=== PATIENT | male | born 1990 | race Caucasian/White ===

== ENCOUNTER 2020-07-28 02:12 | Emergency (ER) | payer OTHER, SELFPAY ==
[2020-07-28 02:23] VITALS: BP 120/80; PULSE 105; RESP 16; TEMP 36.8; O2SAT 98; BMI 25.7
--- NOTE | 2020-07-28 02:41 | XRR_ITS ---
PROCEDURE INFORMATION: Exam: XR Lumbosacral Spine Exam date and time: 07/28/2020 2:41 AM Age: 30 years old Clinical indication: Low back pain TECHNIQUE: Imaging protocol: XR of the lumbosacral spine. Views: 2 or 3 views. COMPARISON: No relevant prior studies available. FINDINGS: Bones/joints: Normal. No acute fracture. Normal alignment. Soft tissues: Unremarkable. XR/XR lumbar spine 2-3V* [id number] IMPRESSION: No acute findings.
[2020-07-28] MEDS: HYDROcodone-acetaminophen 7.5-325 mg Tablet 1 TAB PO (02:45)
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
[2020-07-28 03:47] VITALS: PULSE 76; RESP 16; O2SAT 99
== END 2020-07-28 03:48 | disposition home or self-care (01) ==
PROVIDERS: Emergency Provider Emergency Medicine; PCP Family Medicine
DX: S39.012A Strain of muscle, fascia and tendon of lower back, initial encounter (principal); X50.9XXA Other and unspecified overexertion or strenuous movements or postures, initial encounter
CPT/HCPCS: 72100; 99283

== ENCOUNTER 2020-08-21 06:36 | Outpatient (CLI) | payer SELFPAY ==
--- NOTE | 2020-08-21 07:15 | MR_ITS ---
WS: [id number] MRI RIGHT SHOULDER HISTORY: S46.911A - Strain of unspecified muscle, fascia and tendon strain. COMPARISON: None available. TECHNIQUE: Multiplanar sequences of the shoulder joint are submitted. Very minimal hypertrophic changes at the AC joint. Very small osteophyte encroaching upon the anterio r supraspinatus tendon. There is a small amount of increased signal along the AC ligament but no disp lacement. Very small amount of fluid in the subdeltoid bursa. Biceps tendon is in normal position. No os acromion. No rotator cuff tears. No muscle atrophy or edema. There is a very small amount of increased T2 signa l at the rotator cuff interval and increase fluid surrounding the humeral head. There is a very small amount of increased T2 signal in the posterior humeral head but no fracture identified. Soft tissue injury with edema noted in the posterior shoulder between the infraspinatus muscle and the teres oj r and just deep to the deltoid muscle. Increased signal extends through the posterior labrum consistent with tear. MR/MR shoulder RT wo con* [id number] IMPRESSION: 1. Soft tissue injury with edema is moderate deep to the deltoid muscle and be tween the infraspinatus muscle and the teres minor. 2. No rotator cuff tear. 3. Small amount of marrow edema in the posterior humeral head with no fracture . 4. Mild AC ligament sprain. 5. Posterior labral tear.
--- NOTE | 2020-08-21 08:00 | MR_ITS ---
WS: [id number] MRI LUMBAR SPINE NONCONTRAST HISTORY: S39.012A - Strain of muscle, fascia and tendon of low back. COMPARISON: Lumbar spine radiographs 07/28/2020 TECHNIQUE: Sagittal and axial multisequence imaging is submitted. Very mild straightening of the normal lumbar lordosis. No marrow edema or fracture. Very mild disc desiccation at L4-5 and L5-S1. Conus terminates normally at L1-2 disc level. L1-L2: Normal. L2-L3: Normal. L3-L4: Mild narrowing of the thecal sac may be congenital. Mild encroachment upon the subarticular re cesses and a small amount of fluid in the facet joints. Mild ligamentum flavum hypertrophy. L4-L5: Mild annular disc bulging with a moderate size central disc protrusion contacting and deformin g the ventral thecal sac. There is contact upon the L5 nerve roots bilaterally in the lateral recesse s and mild narrowing of the subarticular recesses and foramen. Slightly greater narrowing on the RIGH T. Associated annular fissure with the disc. L5-S1: Mild annular disc bulge with a central disc protrusion and fissure. Disc does contact and defo rm the ventral thecal sac but the nerve roots do not appear to be significantly affected or displaced . Mild bilateral subarticular and foraminal stenosis. Small amount of fluid in the facet joints. Visualized retroperitoneum is negative. MR/MR lumbar spine wo con* [id number] IMPRESSION: 1. Moderate central disc protrusion at L4-5 with disc contacting the L5 nerve roots bilaterally in the lateral recesses with narrowing of the subarticular re cesses and foramina. No severe stenosis. 2. Central disc protrusion at L5-S1 without contact on the nerve roots. Mild b ilateral subarticular recess and foraminal stenosis. 3. No acute fracture.
== END 2020-08-21 06:37 | disposition home or self-care (01) ==
LOC: RADSHAW 06:39
PROVIDERS: PCP Family Medicine; Visit Provider Nurse Practitioner Family
DX: S39.012A Strain of muscle, fascia and tendon of lower back, initial encounter (principal); S46.911A Strain of unspecified muscle, fascia and tendon at shoulder and upper arm level, right arm, initial encounter; X58.XXXA Exposure to other specified factors, initial encounter; M51.27 Other intervertebral disc displacement, lumbosacral region; M51.26 Other intervertebral disc displacement, lumbar region; S43.51XA Sprain of right acromioclavicular joint, initial encounter; R60.0 Localized edema
CPT/HCPCS: 72148; 73221

== ENCOUNTER 2020-09-20 13:26 | Outpatient (RCR) | payer SELFPAY | END 2020-10-15 23:59 | disposition home or self-care (01) | LOC: SPT 13:26 | PROVIDERS: PCP Family Medicine; Visit Provider Orthopaedic Surgery | DX: S46.911D Strain of unspecified muscle, fascia and tendon at shoulder and upper arm level, right arm, subsequent encounter (principal); X58.XXXD Exposure to other specified factors, subsequent encounter | CPT/HCPCS: 97110; 97162 ==

== ENCOUNTER 2020-10-04 06:00 | Outpatient (RCR) | payer SELFPAY | END 2020-10-15 23:59 | disposition home or self-care (01) | LOC: SPT 06:00 | PROVIDERS: PCP Family Medicine; Referring Provider Specialist; Visit Provider Specialist | DX: M54.5 Low back pain (principal); M51.16 Intervertebral disc disorders with radiculopathy, lumbar region | CPT/HCPCS: 97032; 97110; 97161 ==

== ENCOUNTER 2020-10-16 06:00 | Outpatient (RCR) | payer SELFPAY | END 2020-11-14 23:59 | disposition home or self-care (01) | LOC: SPT 06:00 | PROVIDERS: PCP Family Medicine; Referring Provider Specialist; Visit Provider Specialist | DX: M54.5 Low back pain (principal); M51.16 Intervertebral disc disorders with radiculopathy, lumbar region | CPT/HCPCS: 97110 ==

== ENCOUNTER 2020-10-16 06:00 | Outpatient (RCR) | payer SELFPAY | END 2020-11-14 23:59 | disposition home or self-care (01) | LOC: SPT 06:00 | PROVIDERS: PCP Family Medicine; Visit Provider Orthopaedic Surgery | DX: M54.5 Low back pain (principal); M51.17 Intervertebral disc disorders with radiculopathy, lumbosacral region | CPT/HCPCS: 97110 ==

== ENCOUNTER 2021-08-17 14:01 | Emergency (ER) | payer SELFPAY ==
[2021-08-17 14:21] VITALS: BP 161/91; PULSE 79; RESP 16; TEMP 36.7; O2SAT 98; BMI 28.3
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
--- NOTE | 2021-08-17 14:51 | CTR_ITS ---
PROCEDURE INFORMATION: Exam: CT Lumbar Spine Without Contrast Exam date and time: 08/17/2021 3:11 PM Age: 31 years old Clinical indication: Low back pain TECHNIQUE: Imaging protocol: Computed tomography of the lumbar spine without contrast. Radiation optimization: All CT scans at this facility use at least one of these dose optimization techniques: automated exposure control; mA and/or kV adjustment per patient size (includes targeted exams where dose is matched to clinical indication); or iterative reconstruction. COMPARISON: MR lumbar spine wo con* [id number] 08/21/2020 7:51 AM RADIATION DOSE METRICS: Total DLP (mGy-cm): 2197.14 FINDINGS: Bones/joints: No acute fracture. Normal alignment. L1-L2: No significant disc protrusion. No severe spinal canal stenosis. No significant neural foraminal narrowing. L2-L3: No significant disc protrusion. No severe spinal canal stenosis. No significant neural foraminal narrowing. L3-L4: No significant disc protrusion. No severe spinal canal stenosis. No significant neural foraminal narrowing. L4-L5: Again seen is mild to moderate central disc protrusion with probable minimal thecal sac effacement similar to prior MRI exam.. No severe spinal canal stenosis. No significant neural foraminal narrowing. L5-S1: No significant disc protrusion. No severe spinal canal stenosis. No significant neural foraminal narrowing. Soft tissues: Unremarkable. CT/CT lumbar spine wo con* [id number] IMPRESSION: No acute lumbar spine findings. Other findings as above.
[2021-08-17] MEDS: acetaminophen 500 mg Tablet 1000 MG PO (15:47)
[2021-08-17] MEDS: ketorolac 30 mg/mL INJ IM (15:48)
[2021-08-17] MEDS: diazePAM 5 mg Tablet PO (15:48)
[2021-08-17 15:49] VITALS: BP 144/94; PULSE 78; RESP 16; O2SAT 99
[2021-08-17 17:05] VITALS: BP 165/102; PULSE 77; RESP 16; O2SAT 97
--- NOTE | 2021-08-19 11:03 | DCPLANNER ---
senior product marketing manager had message to refer patient to pain management. senior product marketing manager spoke with patient and explained that gearcase assembler is unable to refer patient to pain management. That if patient wanted to be seen by pain management, that referral would need to come from his primary care physician.
== END 2021-08-17 17:08 | disposition home or self-care (01) ==
PROVIDERS: Emergency Provider Emergency Medicine; PCP Family Medicine
DX: M54.9 Dorsalgia, unspecified (principal)
CPT/HCPCS: 72131; 96372; 99284; J1885